=== PATIENT | female | born 1985 | race Caucasian/White ===

== ENCOUNTER 2016-07-25 18:25 | Emergency (ER) | payer SELFPAY ==
[2016-07-25] MEDS ORDERED: DOXYCYCLINE HYCLATE 100 MG CAPSULE PO SCH (18:45)
[2016-07-25 19:09] VITALS: RESP 18; TEMP 96.9
--- NOTE | 2016-07-25 21:39 | PDOC ---
Skin Rash/Insect/Abscess HPI - General Chief Complaint: Laceration / Wound Stated Complaint: Right inner thigh wound Date Seen by Provider: 07/25/16 Time Seen by Provider: 18:30 Source: POSITIVE: Patient Nurse's Notes Reviewed & Considered: Yes - History of Present Illness Initial Comments: The patient is a 31-year-old female who presents to the emergency department with several painful swollen areas on her right inner thigh. She states that she had one small sore swollen area on her right inner thigh about a month ago. This seems to have resolved on its own. Over the past 24 hours she has developed 3 or 4 similar lesions in the same general area. These lesions are painful. She denies any fevers or chills or any other associated symptoms. She is generally healthy. Have you received a tetanus shot in the past 10 years?: Yes - Patient Home Medications Home Medications: Home Medications Doxycycline Hyclate 100 mg PO Q12H #12 cap 07/25/16 - Patient Allergies Allergies/Adverse Reactions: Allergies Allergy/AdvReac Type Severity Reaction Status Date / Time indomethacin [From Indocin] AdvReac Severe SWELLING Verified 07/25/16 18:32 indomethacin sodium AdvReac Severe SWELLING Verified 07/25/16 18:32 [From Indocin] Past Medical History - heen HEENT History: Denies History Cardiovascular History: Denies History Respiratory History: Denies History Gastrointestinal History: GERD Additional Gastrointestinal History: WHILE Genitourinary History: Denies History Endocrine History: Denies History Musculoskeletal History: Denies History Prosthesis or Implant: No Neurological History: Denies History Blood Disorders: Denies History Psychiatric History: Denies History History of Sexually Transmitted Diseases: No Female Reproductive History: Denies History Obstetrical History: Denies History Cancer History: Denies History In Past Year Been Physically Harmed or Verbally Threatened: No History of MDRO: No History of Other Communicable Diseases: No Tobacco Use: Current Every Day Smoker Alcohol Use: Rarely Substance Use Type: None Previous Surgical History: Yes Type / Date of Surgery: Tonsilectomy. Right breast biopsy x 2. tubal ligation. ovarian cyst removal Significant Family History: No pertinent family hx Past Medical History Reviewed: Reviewed - No Changes ROS - Limitations ROS Limitations: No Limitations Constitution: REPORTS: Denies Symptoms Cardiovascular: REPORTS: Denies Cardiac Symptoms Respiratory: REPORTS: Denies Resp Symptoms, Cough Non Productive Gastrointestinal: REPORTS: Denies GI Symptoms Skin Rash/Insect/Abscess Exam - General Appearance General Appearance: REPORTS: Alert, Cooperative, No Acute Distress - Skin Skin: REPORTS: Other (Examination of the very proximal right inner thigh reveals several small erythematous indurated areas approximately 1 cm in diameter, there is no palpable abscess there.) Skin Rash/Abscess Progress - Patient's Progress MDM / ED Course: The patient does have several lesions on the right inner thigh. These are consistent with infected glands or possible early abscesses. At this point I don't think there is anything that would require drainage. She was started on doxycycline 100 mg twice a day for 7 days. She is advised to do warm compresses and take ibuprofen as needed for pain. She will return to the emergency room if she develops increased pain or swelling, fevers or chills or any other associated worsening. She will follow-up with primary care in 3-5 days. - Consult Counseled: POSITIVE: Patient, Family, RE: DX, RE: Need for F/U Patient Care Time - Estimated PCT Patient Care Time (In Minutes): 10 Vital Signs - Recent Vital Signs Vital Signs: Vital Signs (Last 8 hours) Temp Pulse Resp BP Pulse Ox 07/25/16 18:25 96.9 F 84 18 121/83 97 - VS Reviewed Vital Signs Reviewed: Yes Discharge Clinical Impression: Cellulitis Condition: Stable Prescriptions / Orders: Doxycycline Hyclate 100 mg PO Q12H #12 cap Patient Instructions Given at Discharge: Cellulitis (ED) Additional Instructions: There does appear to be several glands that are infected on the right inner thigh. Start doxycycline 100 mg twice a day for 7 days. Ibuprofen as needed for pain. Warm compresses or warm soaks in the tub or shower. Return to the emergency room if increased pain or swelling, fevers or chills, any worsening or change in symptoms. Recommend follow-up with primary care in 2-3 days. Follow Up With: NONE,NONE [Primary Care Provider] -
== END 2016-07-25 19:00 | disposition home or self-care (01) ==
LOC: ER 18:25
DX: L03.115 Cellulitis of right lower limb (principal)
CPT/HCPCS: 99282